=== PATIENT | female | born 1995 ===

== ENCOUNTER 2025-03-25 06:16 | Day surgery (SDC) | payer BC, OTHER, SELFPAY | END 2025-03-25 11:24 | disposition home or self-care (01) | LOC: GI 06:16 | PROVIDERS: ATTENDING PHYSICIAN Internal Medicine | DX: R12 Heartburn (principal); K22.89 Other specified disease of esophagus; K29.50 Unspecified chronic gastritis without bleeding; K31.7 Polyp of stomach and duodenum; K20.90 Esophagitis, unspecified without bleeding; Z98.0 Intestinal bypass and anastomosis status | CPT/HCPCS: 43239; 88305; 88342 ==